=== PATIENT | male | born 1990 | race Caucasian/White ===

== ENCOUNTER 2017-02-22 11:59 | Emergency (ER) | payer SELFPAY ==
[~2017-02-22] VITALS: Ht 182.9 cm; Wt 67.0 kg
[2017-02-22 12:03] VITALS: BP 102/76; PULSE 80; RESP 18; TEMP 98.2; O2SAT 99
[2017-02-22] MEDS ORDERED: CEPH-460 PO (12:27)
--- NOTE | 2017-02-22 12:28 | PD ---
HPI Chief Complaint: Wound/Suture/Staple Re-Check Time Seen by Provider: 12:27 Travel History International Travel<30 days: No Contact w/Intl Traveler<30days: No Traveled to known affect area: No History of Present Illness HPI 26-year-old male with history of bipolar disorder and depression presents to the emergency department for evaluation of suture removal. Patient states about 2 weeks ago he cut himself with a knife trying to kill himself. States that he had sutures placed at [facility] and was also admitted to their psych facility for a short time. He is here to have sutures removed. States that he already removed 3 of them but was unable to remove the last 4 disease having pain at the site. States there is some redness around the area. Denies any discharge or drainage. Denies any fever, chills, nausea, vomiting. States he has not been washing it well because it hurts him to do so. He denies any suicidal or homicidal ideations. He also complains of a headache and is requesting some Tylenol. States he has occasional headaches and this is a typical headache for him. No other complaints. PFSH Past Medical History Blood Disorders: No Bipolar Disorder: Yes Depression: Yes Cancer: No Cardiovascular Problems: No Diminished Hearing: No Endocrine: No Gastrointestinal Disorders: No Genitourinary: No Immune Disorder: No Implanted Vascular Access Dvce: No Musculoskeletal: No Neurologic: No Psychiatric: Yes (SCHIZOPHRENIA) Reproductive: No Respiratory: No Tetanus Vaccination: < 5 Years Influenza Vaccination: Yes Past Surgical History Other Surgery: No Social History Alcohol Use: Yes Tobacco Use: Yes (CIGARS DAILY ) Substance Use: Yes (CANNABIS) Allergies-Medications (Allergen,Severity, Reaction): Coded Allergies: Cogentin (Verified Allergy, Severe, Cramping, 02/22/17) Dimetapp (Verified Allergy, Severe, 02/22/17) Haldol (Verified Allergy, Severe, 02/22/17) Reported Meds & Prescriptions Reported Meds & Active Scripts Active Keflex (Cephalexin) 500 Mg Cap 500 Mg PO Q6H 7 Days Review of Systems Except as stated in HPI: all other systems reviewed are Neg Physical Exam Narrative GENERAL: Well-nourished and well-developed pleasant patient in no acute distress who is nontoxic appearing. SKIN: Warm and dry. 5 cm laceration to volar aspect of left forearm, mostly healed. There is some mild erythema surrounding the wound. [address] No discharge or drainage. HEAD: Normocephalic and atraumatic. EYES: No injection, drainage, or hyphema noted. PERRLA. EOMI. ENT: No nasal drainage noted. Oropharynx is clear. NECK: Supple and the trachea is midline. CARDIOVASCULAR: Regular rate and rhythm. RESPIRATORY: Breath sounds are equal bilaterally with no accessory muscle use, wheezing, rhonchi, or crackles. MUSCULOSKELETAL: No obvious deformities, swelling, cyanosis, or ecchymosis is present throughout the upper and lower extremities. Patient has full range of motion without any signs of neurovascular compromise. NEUROLOGICAL: Awake, alert, and oriented. Normal speech and gait. Cranial nerves are grossly intact. Data Data Last Documented VS Vital Signs Date Time Temp Pulse Resp B/P Pulse Ox O2 Delivery O2 Flow Rate FiO2 02/22/17 12:03 98.2 80 18 102/76 99 Orders Acetaminophen (Tylenol) (02/22/17 12:30) Cephalexin (Keflex) (02/22/17 12:30) MDM Medical Decision Making Medical Screen Exam Complete: Yes Emergency Medical Condition: Yes Differential Diagnosis Wound infection versus wound dehiscence versus suture removal Narrative Course 26-year-old male presents to the emergency department for suture removal. Patient is afebrile, vital signs are stable. The wound is healed however there is some surrounding erythema and tenderness of the area. The remaining 4 sutures were removed and there is a 0.5 cm area of wound dehiscence. Discussed with the patient that this will have to heal by secondary intention. Discussed proper wound care techniques with the patient. He'll be started on Keflex. Advised follow-up with his PCP. Patient verbalizes understanding and agreement with treatment plan. Diagnosis Primary Impression: Wound dehiscence Additional Impressions: Encounter for removal of sutures Headache Qualified Code: R51 - Acute nonintractable headache, unspecified headache type Referrals: Primary Care Physician Patient Instructions: Acute Wound Care (ED), General Instructions, Wound Dehiscence (ED) Additional Instructions: Wash area gently with soap and water. Take medications as prescribed with food and a full glass of water. Follow-up with your Primary Care Physician. Return to the ED for any acute worsening of symptoms. Med/Other Pt SpecificInfo: Prescription(s) given Scripts Cephalexin (Keflex)500 Mg Tvp327 Mg PO Q6H 7 Days Ref 0 Prov:Venkatesh Martínez MD 02/22/17 Disposition: 01 DISCHARGE HOME Condition: Stable Yolis Mattson Feb 22, 2017 12:28
[2017-02-22] MEDS ORDERED: CEPHALEXIN MONOHYDRATE 500 MG CAP PO ONE (12:30)
[2017-02-22] MEDS ORDERED: ACETAMINOPHEN 500 MG CPLT PO ONE (12:30)
== END 2017-02-22 12:45 | disposition home or self-care (01) ==
LOC: PHEFT 11:59
DX: T81.33XD Disruption of traumatic injury wound repair, subsequent encounter (principal); R51 Headache; F20.9 Schizophrenia, unspecified
CPT/HCPCS: 99282